=== PATIENT | female | born 1965 | race Caucasian/White ===

== ENCOUNTER → 2021-05-02 12:38 | Outpatient (CLI) | payer MEDICAID, SELFPAY ==
--- NOTE | 2021-05-02 13:18 | CT_ITS ---
STUDY: LOW DOSE CT LUNG CANCER SCREENING REASON FOR EXAM: Female, 56 years old. 43 pack-year history. Current smoker. RADIATION DOSAGE (If Supplied By Facility): CTDIvol = ( 2.01 ) mGy, DLP = ( 61.43 ) mGycm TECHNIQUE: No contrast was administered. Low dose technique was utilized (average mAS-38 and kVp 120). 1.25 mm axial source images with a slice interval of 1.25-mm were reconstructed in lung windows. 2.5 mm axial source images with a slice interval of 2.5-mm were reconstructed in lung windows. 5.0 mm axial source images with a slice interval of 5.0-mm were reconstructed in soft tissue windows. Nodule measured using lung windows on PACS and/or independent workstation with automated measurement of minimum and maximum diameter. Nodule measurement reported as average diameter rounded to the nearest whole number. Growth is defined as an increase ins size of greater than 1.5 mm. COMPARISON: None. NODULES: Total lung nodules (excluding granulomas): 0 Emphysema: No Endobronchial lesion: No Aorta: Minimal atherosclerotic changes without aneurysm. Coronary arteries: Minimal calcifications along the left coronary artery. Heart: Normal Pulmonary artery: Normal Mediastinal nodes: None Other chest and abdominal findings: CT/Low Dose CT Lung Screening IMPRESSION: Lung-RADS category 1 - Continue annual screening with LDCT in 12 months. IMPORTANT NOTES FOR USE: ACR Lung-RADS Version 1.1 Assessment Categories Release Date: 2018 Category: Coded 0-4 bases on nodule(s) with highest degree of suspicion. Negative screen is defined as categories 1 and 2; a positive screen is defined as categories 3 and 4. Category 3 and 4A nodules that are unchanged on interval CT should be coded as category 2, and individuals returned to screening in 12 months. Category 4X: Category 3 or 4 nodules with additional imaging findings that increase the suspicion of lung cancer, such as spiculation, GGN that doubles in size in 1 year, enlarged lymph notes, etc. Category Modifiers: S (significant finding unrelated to lung cancer) Electronically Signed: Jericho Byrnes DO at 16:51 EST Tel [phone], Service support ,
== END ==
PROVIDERS: PCP Student in an Organized Health Care Education/Training Program; Referring Provider Internal Medicine Pulmonary Disease; Visit Provider Internal Medicine Pulmonary Disease
DX: Z87.891 Personal history of nicotine dependence (principal); Z12.2 Encounter for screening for malignant neoplasm of respiratory organs
CPT/HCPCS: 71271

== ENCOUNTER → 2022-10-04 | Outpatient (CLI) | payer MEDICAID, SELFPAY ==
--- NOTE | 2022-10-04 12:37 | CT_ITS ---
STUDY: LOW DOSE CT LUNG CANCER SCREENING REASON FOR EXAM: Female, 57 years old. One half pack per day smoker x44 years RADIATION DOSAGE (If Supplied By Facility): CTDIvol = ( 3.02 ) mGy, DLP = ( 94.40 ) mGycm TECHNIQUE: No contrast was administered. Low dose technique was utilized (average mAS-38 and kVp 120). 1.25 mm axial source images with a slice interval of 1.25-mm were reconstructed in lung windows. 2.5 mm axial source images with a slice interval of 2.5-mm were reconstructed in lung windows. 5.0 mm axial source images with a slice interval of 5.0-mm were reconstructed in soft tissue windows. COMPARISON: 05/02/2021 Findings: Lung windows show the lungs to be normally expanded. No organized infiltrate, effusion, or suspicious noncalcified mass or nodule. Limited soft tissues show normal-appearing thyroid gland. Scattered subcentimeter in short axis dimension, physiologic axillary and mediastinal lymph nodes. There are calcified coronary vessels, no pericardial effusion. Limited cuts through the upper abdomen do not show a suspicious abnormality. Bony structures show degenerative change CT/Low Dose CT Lung Screening IMPRESSION: Lung-RADS category 1 - Continue annual screening with LDCT in 12 months. IMPORTANT NOTES FOR USE: ACR Lung-RADS Version 1.1 Assessment Categories Release Date: 2018 Category: Coded 0-4 bases on nodule(s) with highest degree of suspicion. Negative screen is defined as categories 1 and 2; a positive screen is defined as categories 3 and 4. Category 3 and 4A nodules that are unchanged on interval CT should be coded as category 2, and individuals returned to screening in 12 months. Category 4X: Category 3 or 4 nodules with additional imaging findings that increase the suspicion of lung cancer, such as spiculation, GGN that doubles in size in 1 year, enlarged lymph notes, etc. Category Modifiers: S (significant finding unrelated to lung cancer) Electronically Signed: Leonides Ring MD at 13:04 EDT ,
== END | disposition home or self-care (01) ==
LOC: CT 12:32
PROVIDERS: PCP Student in an Organized Health Care Education/Training Program; Referring Provider Internal Medicine Pulmonary Disease; Visit Provider Internal Medicine Pulmonary Disease
DX: Z87.891 Personal history of nicotine dependence (principal)
CPT/HCPCS: 71271

== ENCOUNTER 2024-09-23 09:31 | Day surgery (SDC) | payer MEDICAID, SELFPAY ==
--- NOTE | 2024-09-20 11:54 | EKG12_ITS ---
Test Reason : PRE OP Blood Pressure : */* mmHG Vent. Rate : 87 BPM Atrial Rate : 87 BPM P-R Int : 162 ms QRS Dur : 82 ms QT Int : 378 ms P-R-T Axes : 55 -11 46 degrees QTcB Int : 454 ms Normal sinus rhythm Normal ECG Confirmed by TYLER RUST, STEPHEN ([id number]), scientific publications editor HEENA LAM ([id number]) on 09/20/2024 1:26:13 PM Referred By: Guicho Leonard Confirmed By: STEPHEN SCOTT MD
[2024-09-20 12:48] LABS: Prothrombin Time (Protime)PT. 12.9 SECONDS (11.7-14.9)
[2024-09-20 12:49] LABS: Partial Thromboplast Time 29.5 Seconds (24.1-36.2)
[2024-09-20 13:11] LABS: ALB/GLOB Ratio 1.4 RATIO (0.9-2.4); AST(SGOT) 25 U/L (<=31); Alanine Aminotransfer ALT/SGPT 26 U/L (<=34); Albumin, Serum 4.1 g/dL (3.4-4.8); Alkaline Phosphatase 127 U/L (35-104); Anion Gap 12 (5-15); BUN 14 mg/dL (4-19); BUN/Creat Ratio 11.9 RATIO (10-20); Calcium,Total 8.8 mg/dL (7.6-11.0); Carbon Dioxide 24.1 mmol/L (21.0-32.0); Chloride 104 mmol/L (98-108); Creatinine, Serum 1.17 mg/dL (0.70-1.20); EST Glomerular Filtration Rate 53 (>60); Globulin 2.8 g/dL (2.2-4.2); Glucose 370 mg/dL (70-99); Potassium 4.8 mmol/L (3.3-5.1); Protein, Total 6.9 g/dL (5.9-8.4); Sodium Level 139 mmol/L (133-145)
[2024-09-21 09:16] LABS: Hematocrit 42.6 % (37-47); Hemoglobin 14.2 g/dL (12.0-15.0); Mean Corp Hgb Conc 33.3 g/dL (32-36); Mean Corpuscular Volume 95.9 fL (81-99); Mean Platelet Vol. 9.9 fl (6.2-12.0); Platelet Count 175 K/mm3 (150-450); RBC Distribution Width CV 12.6 % (11.6-14.6); RBC Distribution Width SD 44.8 fl (35.1-43.9); Red Blood Count 4.44 M/mm3 (4.2-5.4)
--- NOTE | 2024-09-21 09:34 | PAT.ANESEVAL ---
Pre-Assessment Diagnosis/Proposed Procedure Planned Operative Procedure(s): ORIF RIGHT DISTAL RADIUS FX Anesthesia History Anesthesia History - shock absorption floor layer: Anesthesia History - shock absorption floor layer Hx Hospitalization No 09/17/24 10:22 Any Problems With Anesthesia Yes: N,V 09/17/24 10:22 Cholinesterase deficiency No 09/17/24 10:22 You/Your Family Experience No 09/17/24 10:22 fever (hyperthermia) with Relationship Recent Exposure to Contagious No 05/01/16 06:49 Disease Does patient have nerve No 09/17/24 10:22 stimulator Patient instructed to have device shut off --Does patient have Pacemaker or ICD? When Was Last Pacemaker Check QUESTION #4 FULL TEXT: You/Your Family Experience fever (hyperthermia) with Anesthesia Last Oral Intake Last Oral intake: Last Oral Intake NPO since Meds taken in AM with sips of water? Meds patient instructed to take am of surgery PONV PONV - shock absorption floor layer: PONV - shock absorption floor layer Female Yes 09/17/24 10:22 HX of Motion Sickness Yes 09/17/24 10:22 HX of N/V After Surgery Yes 09/17/24 10:22 Non-Smoker No 09/17/24 10:22 Duration of Surgery greater Yes 09/17/24 10:22 than 60 minutes Number of Risk Factors 4 09/17/24 10:22 PONV Score Severe Risk 09/17/24 10:22 Height & Weight Height & Weight: Anesthesia: Height & Weight Height 5 ft 1 in 05/01/16 06:49 Respiratory Assessment Respiratory Assessment - shock absorption floor layer: Respiratory Tract Infection Hx - shock absorption floor layer Hx Respiratory Tract Infection No 09/17/24 10:22 STOP Sleep Apnea STOP Sleep Apnea - shock absorption floor layer: STOP Sleep Apnea - shock absorption floor layer Hx Hypertension Yes: CONTROLLED WITH MED 09/17/24 10:22 Hx Sleep Apnea Yes 09/17/24 10:22 CPAP Yes: NONCOMPLIANT 09/17/24 10:22 BIPAP No 09/17/24 10:22 Do you snore loudly (louder than talking or can be heard Do you often feel tired/ fatigued/ sleepy during daytime? Has anyone observed you stop breathing during sleep? STOP Results Positive 09/17/24 10:22 QUESTION #5 FULL TEXT : Do you snore loudly (louder than talking or can be heard through closed doors)? Tobacco Use History Tobacco Use History - shock absorption floor layer: Tobacco Use History - shock absorption floor layer Tobacco Use Smoking Status Current every day smoker 09/17/24 10:22 Hx Tobacco Use Yes 09/17/24 10:22 Years Smoking Packs Smoked per Day Smoking Cessation Date was within the last 15 years Hx Smoking Cessation Date Hx Smoking Cessation Counseling Hematologic Medial History Hematologic Hx - shock absorption floor layer: Hematologic Medical Hx - buffer automatic Hx of Blood Transfusion No 09/17/24 10:22 Hx of Transfusion in last 3 No 09/17/24 10:22 Months Date of Last Transfusion (if within last 3 months) Ever experience any problems No 09/17/24 10:22 with transfusion(s)? Specify any problems Hx of Preganancy in last 3 No 09/17/24 10:22 Months Nurse Filling Out Transfusion DSCHRIBER 09/17/24 10:22 & Questions: Date: 09/17/24 09/17/24 10:22 Time: 10:25 09/17/24 10:22 Patient unable to answer at this time (ie. confused, unrespo /Reproduction History /Reproductive History - shock absorption floor layer: /Reproductive Hx- shock absorption floor layer Hx Now No 09/17/24 10:22 Gestational Age (in weeks): EDC: Hx Hx Para Hx Section SAB No 09/17/24 10:22 PFS Medical History (Updated 09/17/24 @ 10:39 by Zakia Bhandari) Disability Wears glasses Post-menopausal Depression Anxiety Arthritis Cirrhosis High cholesterol Easy bruising Restless legs Back pain Migraine headache Loss of consciousness Seizures Dietary restriction Gastric reflux Smoker CPAP (continuous positive airway pressure) dependence Asthma Leg cramps Hepatitis Insulin dependent diabetes mellitus History of pain when walking Hypertension Adopted Hx of fracture of arm Home Medications ?Medication ?Instructions ?Recorded ?Last Taken ?Type gabapentin 600 mg tablet 600 tab PO TID 10/20/13 05/01/16 05:45 History 600 TAB meloxicam 15 mg tablet 15 tab PO BID 10/20/13 Unknown History insulin aspart U-100 100 unit/mL 30 unit subcut BID PRN 09/14/14 Unknown History subcutaneous solution (Novolog hyperglycemia U-100 Insulin aspart) lorazepam 0.5 mg tablet 0.5 mg PO TID PRN PRN Anxiety 09/14/14 05/01/16 05:45 History 0.5 MG cetirizine 10 mg capsule (Zyrtec) 10 mg PO DAILY 01/23/15 Unknown History tizanidine 4 mg tablet (Zanaflex) 4 mg PO QHS 01/23/15 Unknown History fluticasone propionate 50 1 spray BID 04/26/16 Unknown History mcg/actuation nasal spray,suspension meclizine 12.5 mg tablet 12.5 mg PO TID PRN PRN Nausea 04/26/16 Unknown History fluticasone 250 mcg-salmeterol 50 1 puff inhalation BID 05/01/16 05/01/16 05:45 History mcg/dose blistr powdr for 1 PUFF inhalation (Advair Diskus) amlodipine 10 mg tablet 10 mg PO QHS 09/17/24 Unknown History cyanocobalamin (vitamin B-12) 1,000 mcg sublingual DAILY 09/17/24 Unknown History 1,000 mcg sublingual tablet duloxetine 60 mg capsule,delayed 120 mg PO QHS 09/17/24 Unknown History release enalapril maleate 5 mg tablet 5 mg PO QHS 09/17/24 Unknown History fremanezumab-vfrm 225 mg/1.5 mL 225 mg subcut QMONTH 09/17/24 Unknown History subcutaneous auto-injector (Ajovy) insulin degludec 200 unit/mL (3 30 unit subcut BID 09/17/24 Unknown History mL) subcutaneous pen (Tresiba FlexTouch U-200 insulin) metformin 500 mg tablet,extended 500 mg PO TID 09/17/24 Unknown History release 24 hr montelukast 10 mg tablet 10 mg PO DAILY 09/17/24 Unknown History pantoprazole 40 mg tablet,delayed 40 mg PO QHS 09/17/24 Unknown History release promethazine-DM 6.25 mg-15 mg/5 mL 5 ml PO QHS NAUSEA 09/17/24 Unknown History oral syrup rosuvastatin 20 mg tablet 20 mg PO QHS 09/17/24 Unknown History suvorexant 10 mg tablet (Belsomra) 10 mg PO QHS 09/17/24 Unknown History tenofovir alafenamide 25 mg tablet 25 mg PO QHS 09/17/24 Unknown History (Vemlidy) ubrogepant 100 mg tablet (Ubrelvy) 100 mg PO PRN PRN MIGRAINE 09/17/24 Unknown History Allergy/AdvReac Type Severity Reaction Status Date / Time chlorhexidine (From Allergy Hives Verified 09/17/24 10:11 ChloraPrep Clear) egg Allergy Food Verified 09/17/24 10:11 Allergy hydrocodone bitartrate (From Allergy Rash Verified 09/17/24 10:11 Vicodin) isopropyl alcohol (From Allergy Hives Verified 09/17/24 10:11 ChloraPrep Clear) moxifloxacin (From Avelox) Allergy Unknown Verified 09/17/24 10:11 oxycodone HCl (From Percocet) Allergy Rash Verified 09/17/24 10:11 Tetracyclines Allergy Unknown Verified 09/17/24 10:11 Surgical History (Updated 09/17/24 @ 10:39 by Zakia Bhandari) Hx laparoscopic cholecystectomy Hx of hysterectomy Hx of repair of left rotator cuff Hx of repair of right rotator cuff Social History Smoking Status: Current every day smoker tobacco type: cigarettes Audit: Pertinent Findings Pertinent Findings EKG Perinent findings: September 20, 2024. Normal sinus rhythm. Recommendation Anesthesia Recommendation Anesthesia recommendation: OPTIMIZED for anesthesia (Recheck glucose day of surgery.)
[2024-09-23] VITALS (12 sets, daily range): BP systolic 112–153; BP diastolic 61–94; PULSE 75–88; RESP 16–18; TEMP 36.1–36.8; O2SAT 92–97; BMI 28.3
--- NOTE | 2024-09-23 09:23 | PCM.POST.ANE ---
Anesthesia: Postop Eval I Current Vital Signs Temperature: 97 F Pulse Rate: 82 Blood Pressure: 112/62 Respiratory Rate: 16 Pulse Ox: 95 Assessment Airway patent: Yes Spontaneous unlabored respirations: Yes nausea: No Vomiting: No Anesthesia Complication: No Fluid Hydration Crystalloid volume administer (ml): 1,300 Total IV fluid infused: 1,300 Progress Note Anesthesia document: Postop Eval 1 completed: Yes
[2024-09-23] MEDS: 0.9% Normal Saline (1000mL) 1,000 ML 15 ML IV (10:03)
--- NOTE | 2024-09-23 10:38 | PCM.PRE.AN2 ---
ASA Classification* ASA Classification ASA Classification: 3 Assessment & Plan Anesthesia* Anesthesia Assessment Anesthesia Assessment: Discussed sedation and/or anesthesia options, risks, benefits, and alternatives with patient/parents/legal guardian/POA. Questions invited. The patient/parents/legal guardian/POA seems to understand and agrees to proceed with anesthesia plan. Reviewed the physical assessment, medical history, allergy history and patient home medications list prior to surgery/procedure/anesthetic and documented any changes. Performed airway and anesthesia risk assessments. Anesthesia Type Anesthesia Type: General and Block History Source History Obtained from:: Patient and Chart Anesthesia Focused Assessment* Temperature: 97.6 F Pulse Rate: 88 Blood Pressure: 117/94 Respiratory Rate: 16 Pulse Ox: 92 Oxygen Delivery Method: Room Air Airway Assessment Mouth opens: >3 cm Mallampati Score: II Teeth Condition: Intact Neck Range of motion (ROM): Full ROM Focused Labs Anesthesia Preop lab: CBC WBC 7.0 K/mm3 (4.4-11.0) 09/20/24 12:06 09/20/24 RBC 4.44 M/mm3 (4.2-5.4) 09/20/24 12:06 09/20/24 Hgb 14.2 g/dL (12.0-15.0) 09/20/24 12:06 09/20/24 Hct 42.6 % (37-47) 09/20/24 12:06 09/20/24 Plt Count 175 K/mm3 (150-450) 09/20/24 12:06 09/20/24 CHEMISTRY Potassium 4.8 mmol/L (3.3-5.1) 09/20/24 12:06 09/20/24 Sodium 139 mmol/L (133-145) 09/20/24 12:06 09/20/24 Magnesium 1.9 mg/dL (1.8-2.4) 12/12/14 12:16 12/12/14 Phosphorus 3.4 mg/dL (2.5-4.9) 12/12/14 12:16 12/12/14 BUN 14 mg/dL (4-19) 09/20/24 12:06 09/20/24 Creatinine 1.17 mg/dL (0.70-1.20) 09/20/24 12:06 09/20/24 Glucose 370 mg/dL (70-99) H 09/20/24 12:06 09/20/24 POC Glucose 106 mg/dL (70-110) 05/01/16 11:21 05/01/16 COAG PT 12.9 SECONDS (11.7-14.9) 09/20/24 12:06 09/20/24 Pre-Assessment Diagnosis/Proposed Procedure Planned Operative Procedure(s): ORIF RIGHT DISTAL RADIUS FX Anesthesia History 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 When Was Last Pacemaker Check QUESTION #4 FULL TEXT: You/Your Family Experience fever (hyperthermia) with Anesthesia Last Oral Intake Last Oral intake: Last Oral Intake NPO since 06:00 09/23/24 10:04 Meds taken in AM with sips of Yes 09/23/24 10:04 water? 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 Female Yes 09/17/24 10:22 HX of Motion Sickness Yes 09/17/24 10:22 HX of N/V After Surgery Yes 09/17/24 10:22 Non-Smoker No 09/17/24 10:22 Duration of Surgery greater Yes 09/17/24 10:22 than 60 minutes Number of Risk Factors 4 09/17/24 10:22 PONV Score Severe Risk 09/17/24 10:22 Height & Weight Height & Weight: Anesthesia: Height & Weight Height 5 ft 1 in 09/23/24 10:04 Weight: 68 kg 09/23/24 10:04 Body Mass Index (BMI) 28.3 09/23/24 10:04 Respiratory Assessment Respiratory Assessment - ice skating instructor: Respiratory Tract Infection Hx - ice skating instructor Hx Respiratory Tract Infection No 09/17/24 10:22 STOP Sleep Apnea STOP Sleep Apnea - ice skating instructor: STOP Sleep Apnea - 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 Has anyone observed you stop breathing during sleep? STOP Results Positive 09/17/24 10:22 QUESTION #5 FULL TEXT : Do you snore loudly (louder than talking or can be heard through closed doors)? 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 Specify any problems Hx of Preganancy in last 3 No 09/17/24 10:22 Months Nurse Filling Out Transfusion DSCHRIBER 09/17/24 10:22 & Questions: Date: 09/17/24 09/17/24 10:22 Time: 10:09/17/24 10:22 Patient unable to answer at this time (ie. 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: /Reproductive Hx- ice skating instructor Hx Now No 09/17/24 10:22 Gestational Age (in weeks): EDC: Hx Hx Para Hx Section SAB No 09/17/24 10:22 Active Medications Active Medications: Current Medications Generic Name Dose Route Start Last Admin Trade Name Freq PRN Reason Stop Dose Admin Cefazolin Sodium 2 gm/ N/A 20 mls @ 400 mls/hr 09/23/24 13:00 IV 09/23/24 13:02 X1 ONE Sodium Chloride 1,000 mls @ 15 mls/hr 09/23/24 09:50 09/23/24 10:03 IV 15 mls/hr .Q48H [facility] Administration [facility] Medical History (Updated 09/17/24 @ 10:39 by Zakia Bhandari) Disability Wears glasses Post-menopausal Depression Anxiety Arthritis Cirrhosis High cholesterol Easy bruising Restless legs Back pain Migraine headache Loss of consciousness Seizures Dietary restriction Gastric reflux Smoker CPAP (continuous positive airway pressure) dependence Asthma Leg cramps Hepatitis Insulin dependent diabetes mellitus History of pain when walking Hypertension Adopted Hx of fracture of arm Home Medications ?Medication ?Instructions ?Recorded ?Last Taken ?Type gabapentin 600 mg tablet 600 tab PO TID 10/20/13 09/22/24 History meloxicam 15 mg tablet 15 tab PO BID 10/20/13 09/22/24 History insulin aspart U-100 100 unit/mL 30 unit subcut BID PRN 09/14/14 09/22/24 History subcutaneous solution (Novolog hyperglycemia U-100 Insulin aspart) lorazepam 0.5 mg tablet 0.5 mg PO TID PRN PRN Anxiety 09/14/14 09/23/24 History cetirizine 10 mg capsule (Zyrtec) 10 mg PO DAILY 01/23/15 09/22/24 History tizanidine 4 mg tablet (Zanaflex) 4 mg PO QHS 01/23/15 Unknown History fluticasone propionate 50 1 spray BID 04/26/16 Unknown History mcg/actuation nasal spray,suspension meclizine 12.5 mg tablet 12.5 mg PO TID PRN PRN Nausea 04/26/16 Unknown History fluticasone 250 mcg-salmeterol 50 1 puff inhalation BID 05/01/16 09/23/24 History mcg/dose blistr powdr for inhalation (Advair Diskus) amlodipine 10 mg tablet 10 mg PO QHS 09/17/24 09/22/24 History cyanocobalamin (vitamin B-12) 1,000 mcg sublingual DAILY 09/17/24 09/22/24 History 1,000 mcg sublingual tablet duloxetine 60 mg capsule,delayed 120 mg PO QHS 09/17/24 09/23/24 History release enalapril maleate 5 mg tablet 5 mg PO QHS 09/17/24 09/23/24 History fremanezumab-vfrm 225 mg/1.5 mL 225 mg subcut QMONTH 09/17/24 Unknown History subcutaneous auto-injector (Ajovy) insulin degludec 200 unit/mL (3 30 unit subcut BID 09/17/24 09/22/24 History mL) subcutaneous pen (Tresiba FlexTouch U-200 insulin) metformin 500 mg tablet,extended 500 mg PO TID 09/17/24 09/22/24 History release 24 hr montelukast 10 mg tablet 10 mg PO DAILY 09/17/24 09/22/24 History pantoprazole 40 mg tablet,delayed 40 mg PO QHS 09/17/24 09/22/24 History release promethazine-DM 6.25 mg-15 mg/5 mL 5 ml PO QHS NAUSEA 09/17/24 09/22/24 History oral syrup rosuvastatin 20 mg tablet 20 mg PO QHS 09/17/24 09/23/24 History suvorexant 10 mg tablet (Belsomra) 10 mg PO QHS 09/17/24 09/22/24 History tenofovir alafenamide 25 mg tablet 25 mg PO QHS 09/17/24 09/22/24 History (Vemlidy) ubrogepant 100 mg tablet (Ubrelvy) 100 mg PO PRN PRN MIGRAINE 09/17/24 Unknown History Allergy/AdvReac Type Severity Reaction Status Date / Time chlorhexidine (From Allergy Hives Verified 09/23/24 10:01 ChloraPrep Clear) egg Allergy Food Verified 09/23/24 10:01 Allergy hydrocodone bitartrate (From Allergy Rash Verified 09/23/24 10:01 Vicodin) isopropyl alcohol (From Allergy Hives Verified 09/23/24 10:01 ChloraPrep Clear) moxifloxacin (From Avelox) Allergy Unknown Verified 09/23/24 10:01 oxycodone HCl (From Percocet) Allergy Rash Verified 09/23/24 10:01 Tetracyclines Allergy Unknown Verified 09/23/24 10:01 Surgical History (Updated 09/17/24 @ 10:39 by Zakia Bhandari) Hx laparoscopic cholecystectomy Hx of hysterectomy Hx of repair of left rotator cuff Hx of repair of right rotator cuff Social History Smoking Status: Current every day smoker tobacco type: cigarettes Review of Systems (Anesthesia) ROS Narrative System reviewed and no additional complaints, except as documented.
[2024-09-23 11:19] LABS: Bedside Glucose 187 mg/dL (74-106)
[2024-09-23] MEDS: Cefazolin 2 GM in Syringe IV (11:20)
--- NOTE | 2024-09-23 11:45 | RAD_ITS ---
EXAM: XR Right Wrist, 2 Views CLINICAL INDICATION: RT WRIST ORIF TECHNIQUE: Frontal and lateral views of the right wrist. COMPARISON: No relevant prior studies available. FINDINGS: BONES/JOINTS: Fluoroscopic images were used intraoperatively. Total of 4 images were obtained. The fixation plate and side screws to the distal radius. Total fluoroscopy time 44.9 seconds. Total radiation dose 0.79 mGy. No acute fracture. No dislocation. SOFT TISSUES: Unremarkable. No radiopaque foreign body. RAD/Wrist 2 Views IMPRESSION: Fluoroscopic images used intraoperatively. Please refer to the operative note for further details. Reading Location: [facility]
--- NOTE | 2024-09-23 13:06 | PCM.POST.ANE ---
Anesthesia: Postop Eval I Current Vital Signs Temperature: 98 F Pulse Rate: 82 Blood Pressure: 153/77 Respiratory Rate: 16 Pulse Ox: 93 Assessment Airway patent: Yes Spontaneous unlabored respirations: Yes nausea: No Vomiting: No Anesthesia Complication: No Fluid Hydration Crystalloid volume administer (ml): 1,100 Total IV fluid infused: 1,100 Progress Note Anesthesia document: Postop Eval 1 completed: Yes
--- NOTE | 2024-09-23 13:07 | PCM.OPRPT ---
Operative Report (Standard) Operative Information Date of Procedure: 09/23/24 Pre-Operative Diagnosis: Displaced intra-articular distal radius fracture Post-Operative Diagnosis: Displaced intra-articular distal radius fracture Surgery/Procedure Performed: Open reduction internal fixation right distal radius, greater than 3 parts comb setter: Yes Outpatient Pharmacy Manager: Rocío Cerda Tasks completed by engineer second assistant: Opening & closing, Implanting device and Retracting Additional academic affairs assistant?: No Type of Anesthesia: General/Regional RN Documented Start/Stop Times: Operation Date: 09/23/24 11:10 Case Time Into Pre-Op 09/23/24 09:44 Anesthesia Start 09/23/24 11:20 Into Room 09/23/24 11:20 Procedure Start 09/23/24 11:44 Procedure End 09/23/24 12:48 Anesthesia End 09/23/24 12:57 Out of Room 09/23/24 12:57 Into Recovery 09/23/24 13:00 Procedure Start Time: 11:44 Procedure Stop Time: 12:48 Select all DRAINS/GRAFTS/IMPLANTS that apply: Implanted device Implanted device details: Arthrex narrow 3-hole volar distal radius locking plate and screws, 0.45 inch K wire x 2 Estimated Blood Loss: 25 cc Specimen collected: No Description of surgery: The patient was identified in the preoperative holding area by name, medical record number, and date of . The operative extremity was marked. All questions were answered to the patient's satisfaction. Axillary block was then administered by anesthesia staff. Patient was then brought to the operative suite and positioned supine on a standard operating table. General anesthesia was induced and endotracheal tube placed and secured. The bed was spun 90 degrees. The applied well-padded pneumatic tourniquet to the right upper arm. Right upper extremity was then prepped and draped in a normal, sterile orthopedic fashion. We performed a timeout confirming the side, site, and operation to be performed. No concerns were voiced and we elected to proceed with surgery. 2 g Ancef was administered IV prior to incision and tourniquet inflation by anesthesia staff. I then exsanguinated the right upper extremity with an Esmarch bandage. Tourniquet was inflated to 250 mmHg which remained up for approximately 45 minutes. Esmarch was removed. Standard FCR approach was utilized volarly. Full-thickness skin flaps were developed overlying the FCR tendon approximately 5 cm in length. The tendon was retracted ulnarly as its floor was opened in line with the incision. The flexor pollicis longus muscle belly was then retracted ulnarly exposing the pronator quadratus. The pronator was intact and a tenotomy was performed elevating it ulnarly. Fracture early callus was encountered and displaced fracture was obviously noted. I performed a brachioradialis tenotomy to allow for mobilization of the radial styloid fragment. I used a rongeur to debride early callus. Near-anatomic reduction was achieved with volar translation of the carpus and ulnar deviation. I held the provisional reduction with a radial styloid K wire. Orthogonal fluoroscopy confirmed acceptable reduction. Narrow 3-hole plate was selected for and provisionally placed and held in place with K wires. Appropriate placement was noted. I secured the plate to bone with a cortical screw in the shaft portion of the plate. I then filled the distal cluster with unicortical locking screws. K wires were removed. Significant comminution of the radial styloid was noted and elected placed to cross pins through the radial styloid percutaneously for temporary fixation with plans to remove those in the perioperative period. I then placed 2 additional screws in the shaft portion of the plate to complete our fixation. Orthogonal fluoroscopy demonstrated appropriate reduction, hardware positioning and sizing. Final fluoroscopic images were saved. Wound was copiously irrigated with normal saline solution. Tourniquet was deflated. Hemostasis was achieved with bipolar cautery. Dermis was reapproximated with buried 3-0 Vicryl suture and skin with running subcuticular 4-0 Monocryl and Dermabond. Bulky sterile compression dressing was applied as well as a well-padded short arm fiberglass splint. Patient was safely explained the operative suite and transferred to her gurney and subsequently to PACU in stable condition after being awakened from anesthesia. She tolerated the procedure well without apparent complication. Need for skilled academic affairs assistant: Rocío Cerda PA-C was critical to the outcome of the case. During the course of the procedure the physician academic affairs assistant played a vital role. Her intimate knowledge of my steps in the procedure aided in safe and expedient completion of the procedure. The PA played a vital role in positioning particularly in obtaining the appropriate positioning. The PA was also vital in the retraction of soft tissues during the exposure and protecting vital structures. The PA was also vital and obtaining fracture reduction and assisting with hardware placement. She also played a vital role in closure and splint application with my direct supervision. Postoperative plan: Patient will be discharged home same day today after meeting same-day surgery criteria. She will follow-up in 2 weeks for splint off x-rays and wound check. Consider removal of K wires in 2 weeks versus casting for an additional 2 weeks depending on appearance of x-rays. Patient takes normal meloxicam and gabapentin for pain. She does have end-stage hepatic disease. I will judiciously prescribe 50 mg tramadol to be taken every 12 hours as needed for pain. Ice and elevation encouraged. Keep splint clean dry and intact until follow-up. Surgical Findings: Comminuted intra-articular distal radius fracture. Complications Complications: No Admit VTE Documentation VTE Present on Admission: No VTE Mechan Device Prophylaxis: SCD's VTE Pharm Prophylaxis ordered?: No Reason prophylaxis not ordered: Medical Contraindication (End-stage hepatic disease)
--- NOTE | 2024-09-23 14:04 | POSTOPAN2_ITS ---
Anesthesia Postop Eval I Sum Postop Eval Completion status Anesthesia document: Postop Eval 1 completed: Yes Anesthesia Postop Eval I Summary Anesthesia Postop Eval I Summary: Anesthesia Postop Eval I: Assessment Summary Airway patent Yes 09/23/24 13:06 MACHINE CEMENTER [email or web address] Spontaneous unlabored Yes 09/23/24 13:06 MACHINE CEMENTER AND [email or web address] respirations Mental status nausea No 09/23/24 13:06 MACHINE CEMENTER AND [email or web address] Vomiting No 09/23/24 13:06 MACHINE CEMENTER [email or web address] Anesthesia Postop Eval I: Fluid Summary Crystalloid volume administer 1,100 09/23/24 13:06 MACHINE CEMENTER [email or web address] (ml) Colloids volume administered ( ml) Blood Product volume administered (ml) Total IV fluid infused 1,100 09/23/24 13:06 MACHINE CEMENTER [email or web address] Anesthesia Postop Eval I: Summary Notes Anesthesia Complication No 09/23/24 13:06 MACHINE CEMENTER AND [email or web address] Anesthesia Complication Comment: Post-operative progress note Anesthesia: Postop Eval II Evaluation Mental status: Awake and Calm Pain Level: 0 nausea: No Vomiting: No
--- NOTE | 2024-09-23 14:04 | PCM.POSTANE2 ---
Anesthesia Postop Eval I Sum Postop Eval Completion status Anesthesia document: Postop Eval 1 completed: Yes Anesthesia Postop Eval I Summary Anesthesia Postop Eval I Summary: Anesthesia Postop Eval I: Assessment Summary Airway patent Yes 09/23/24 13:06 [email or web address] Spontaneous unlabored Yes 09/23/24 13:06 [email or web address] respirations Mental status nausea No 09/23/24 13:06 [email or web address] Vomiting No 09/23/24 13:06 [email or web address] Anesthesia Postop Eval I: Fluid Summary Crystalloid volume administer 1,100 09/23/24 13:06 [email or web address] (ml) Colloids volume administered ( ml) Blood Product volume administered (ml) Total IV fluid infused 1,100 09/23/24 13:06 [email or web address] Anesthesia Postop Eval I: Summary Notes Anesthesia Complication No 09/23/24 13:06 [email or web address] Anesthesia Complication Comment: Post-operative progress note Anesthesia: Postop Eval II Evaluation Mental status: Awake and Calm Pain Level: 0 nausea: No Vomiting: No
== END 2024-09-23 14:29 | disposition home or self-care (01) ==
LOC: SDC 09:32 → AC 09:33
PROVIDERS: Anesthesiology; PCP Student in an Organized Health Care Education/Training Program; Referring Provider Student in an Organized Health Care Education/Training Program; Visit Provider Student in an Organized Health Care Education/Training Program
PROC: (CPT 25609; principal; 2024-09-23 10:50)
DX: S52.591D Other fractures of lower end of right radius, subsequent encounter for closed fracture with routine healing (principal); J44.9 Chronic obstructive pulmonary disease, unspecified; E11.9 Type 2 diabetes mellitus without complications; F17.210 Nicotine dependence, cigarettes, uncomplicated; Z90.710 Acquired absence of both cervix and uterus; I10 Essential (primary) hypertension; Z99.89 Dependence on other enabling machines and devices; K21.9 Gastro-esophageal reflux disease without esophagitis; G47.30 Sleep apnea, unspecified; F32.A Depression, unspecified; E66.3 Overweight; Z68.27 Body mass index [BMI] 27.0-27.9, adult; Z79.899 Other long term (current) drug therapy; Z86.19 Personal history of other infectious and parasitic diseases
CPT/HCPCS: 25609; 36415; 73100; 76000; 80053; 82962; 83036; 85027; 85610; 85730; 93005; C1713; J2405

== ENCOUNTER → 2024-10-19 | Outpatient (CLI) | payer MEDICAID, SELFPAY ==
--- NOTE | 2024-10-19 15:45 | CT_ITS ---
PROCEDURE: LOW DOSE CT LUNG SCREENING (CTLUNGSCREEN), 10/19/2024 REASON FOR EXAM: NICOTINE DEP TECHNIQUE: Low dose CT (LDCT) chest was performed without contrast. Multiplanar reformats and MIP reconstructions were generated. RADIATION DOSE SUMMARY: CTDlvol: 3.02 mGy DLP: 91.38 mGycm One or more dose reduction techniques were used (e.g., Automated exposure control, adjustment of the mA and/or kV according to patient size, use of iterative reconstruction technique). COMPARISON: 05/02/2020 10/04/2012 and prior FINDINGS: Note that evaluation of the vasculature, maxwell, and soft tissues is limited in the absence of IV contrast. Heart/pericardium:Mild/moderate but multivessel coronary atherosclerosis and/or stents. Trace aortic annular calcification.. Aorta: Mild calcific atherosclerosis. Pulmonary arteries: Unremarkable. Lymph nodes: Prominent but subcentimeter mediastinal nodes, grossly unchanged.. Lungs/pleura: 2 mm LEFT upper lobe micronodule, probably unchanged, possible mucous plugging (series 2, image 85). Accessory fissure in the RIGHT lower lobe, normal variant. Airways: Unremarkable. Chest wall: Unremarkable. Upper abdomen: Cholecystectomy.. Musculoskeletal: Demineralization. Mild spondylosis. Similar chronic T12 burst fracture.. Degenerative changes of the LEFT shoulder. CT/Low Dose CT Lung Screening IMPRESSION: 1. Lung-RADS category: 2 (benign appearance or behavior, <1% chance of malignan cy); continue annual screening with LDCT. 2. Other clinically significant or potentially significant non-lung cancer find ings: None. 3. Additional description as above. Recommendations per [employer]. Lung CT Screening Reporting and Data System (Lung-RADS) v. 2022 Reading Location: [id number]
== END | disposition home or self-care (01) ==
PROVIDERS: PCP Student in an Organized Health Care Education/Training Program; Referring Provider Internal Medicine Pulmonary Disease; Visit Provider Internal Medicine Pulmonary Disease
DX: Z87.891 Personal history of nicotine dependence (principal)
CPT/HCPCS: 71271

== ENCOUNTER 2025-02-14 11:01 | Day surgery (SDC) | payer MEDICAID, SELFPAY ==
--- NOTE | 2025-02-09 18:17 | PAT.ANE_ITS ---
Pre-Assessment Diagnosis/Proposed Procedure Planned Operative Procedure(s): ORIF DIATAL RADIUS RIGHT WITH SPANNING PLATE,REMOVAL OF HARDWARE Anesthesia History Anesthesia History - ct scan special procedures technologist: Anesthesia History - ct scan special procedures technologist Hx Hospitalization Yes 02/08/25 11:25 Any Problems With Anesthesia Yes: vomiting/NO PROBLEMS 02/08/25 11:25 WITH 09/2024 ANESTHESIA Cholinesterase deficiency No 02/08/25 11:25 You/Your Family Experience No 02/08/25 11:25 fever (hyperthermia) with Relationship Recent Exposure to Contagious No 09/23/24 10:04 Disease Does patient have nerve No 02/08/25 11:25 stimulator Patient instructed to have device shut off --Does patient have Pacemaker or ICD? When Was Last Pacemaker Check QUESTION #4 FULL TEXT: You/Your Family Experience fever (hyperthermia) with Anesthesia Last Oral Intake Last Oral intake: Last Oral Intake NPO since Meds taken in AM with sips of water? Meds patient instructed to take am of surgery PONV PONV - ct scan special procedures technologist: PONV - ct scan special procedures technologist Female Yes 02/08/25 11:25 HX of Motion Sickness Yes 02/08/25 11:25 HX of N/V After Surgery Yes 02/08/25 11:25 Non-Smoker No 02/08/25 11:25 Duration of Surgery greater Yes 02/08/25 11:25 than 60 minutes Number of Risk Factors 4 02/08/25 11:25 PONV Score Severe Risk 02/08/25 11:25 Height & Weight Height & Weight: Anesthesia: Height & Weight Height 5 ft 1 in 09/23/24 10:04 Respiratory Assessment Respiratory Assessment - ct scan special procedures technologist: Respiratory Tract Infection Hx - ct scan special procedures technologist Hx Respiratory Tract Infection No 02/08/25 11:25 STOP Sleep Apnea STOP Sleep Apnea - ct scan special procedures technologist: STOP Sleep Apnea - ct scan special procedures technologist Hx Hypertension Yes: CONTROLLED WITH MED 02/08/25 11:25 Hx Sleep Apnea Yes 02/08/25 11:25 CPAP Yes: NONCOMPLIANT 02/08/25 11:25 BIPAP No 02/08/25 11:25 Do you snore loudly (louder Yes 02/08/25 11:25 than talking or can be heard Do you often feel tired/ No 02/08/25 11:25 fatigued/ sleepy during daytime? Has anyone observed you stop No 02/08/25 11:25 breathing during sleep? STOP Results Positive 02/08/25 11:25 QUESTION #5 FULL TEXT : Do you snore loudly (louder than talking or can be heard through closed doors)? Tobacco Use History Tobacco Use History - ct scan special procedures technologist: Tobacco Use History - ct scan special procedures technologist Tobacco Use Smoking Status Current every day smoker 02/08/25 11:25 Hx Tobacco Use Yes 02/08/25 11:25 Years Smoking Packs Smoked per Day Smoking Cessation Date was within the last 15 years Hx Smoking Cessation Date Hx Smoking Cessation Counseling Hematologic Medial History Hematologic Hx - ct scan special procedures technologist: Hematologic Medical Hx - rn documentation specialist Hx of Blood Transfusion No 02/08/25 11:25 Hx of Transfusion in last 3 No 02/08/25 11:25 Months Date of Last Transfusion (if within last 3 months) Ever experience any problems No 02/08/25 11:25 with transfusion(s)? Specify any problems Hx of Preganancy in last 3 No 02/08/25 11:25 Months Nurse Filling Out Transfusion DSCHRIBER 02/08/25 11:25 & Questions: Date: 02/08/25 02/08/25 11:25 Time: 11:02/08/25 11:25 Patient unable to answer at this time (ie. confused, unrespo /Reproduction History /Reproductive History - ct scan special procedures technologist: /Reproductive Hx- ct scan special procedures technologist Hx Now Gestational Age (in weeks): EDC: Hx Hx Para Hx Section SAB No 02/08/25 11:25 PFSH Medical History (Updated 02/08/25 @ 11:32 by Zakia Bhandari) Disability Wears glasses Post-menopausal Depression Anxiety Arthritis Cirrhosis High cholesterol Easy bruising Restless legs Back pain Migraine headache Loss of consciousness Seizures Dietary restriction Gastric reflux Smoker CPAP (continuous positive airway pressure) dependence Asthma Leg cramps Hepatitis Insulin dependent diabetes mellitus History of pain when walking Hypertension Adopted Hx of fracture of arm Home Medications ?Medication ?Instructions ?Recorded ?Last Taken ?Type gabapentin 600 mg tablet 600 tab PO TID 10/20/1308/17 History meloxicam 15 mg tablet 15 tab PO BID 10/20/1309/22 History insulin aspart U-100 100 unit/mL 30 unit subcut BID VA N 09/14/14 09/22/24 Hi story subcutaneous solution (Novolog hyperglycemia U-100 Insulin aspart) lorazepam 0.5 mg tablet 0.5 mg PO TID PRN PRN Anxiet y 09/14/14 09/23/24 History tizanidine 4 mg tablet (Zanaflex) 4 mg PO QHS 01/23/15 Unknown History fluticasone propionate 50 1 spray BID 04/26/16 Unknown History mcg/actuation nasal spray,suspension meclizine 12.5 mg tablet 12.5 mg PO TID PRN PRN Nause a 04/26/16 Unknown History fluticasone 250 mcg-salmeterol 50 1 puff inhalation BI D 05/01/16 09/23/24 History mcg/dose blistr powdr for inhalation (Advair Diskus) amlodipine 10 mg tablet 10 mg PO QHS 09/17/24 History cyanocobalamin (vitamin B-12) 1,000 mcg sublingual SILVIA LY 09/17/24 09/22/24 History 1,000 mcg sublingual tablet duloxetine 60 mg capsule,delayed 120 mg PO QHS 5 09/23/24 History release enalapril maleate 5 mg tablet 5 mg PO QHS 09/17/2409/14 History fremanezumab-vfrm 225 mg/1.5 mL 225 mg subcut QMONTH 0 09/17/24 Unknown History subcutaneous auto-injector (Ajovy) insulin degludec 200 unit/mL (3 30 unit subcut BID 09/22/24 History mL) subcutaneous pen (Tresiba FlexTouch U-200 insulin) metformin 500 mg tablet,extended 500 mg PO TID 5 09/22/24 History release 24 hr montelukast 10 mg tablet 10 mg PO DAILY 09/17/24 04/08/17 History pantoprazole 40 mg tablet,delayed 40 mg PO QHS 5 09/22/24 History release promethazine-DM 6.25 mg-15 mg/5 mL 5 ml PO QHS NAUSEA 09/17/24 09/22/24 History oral syrup rosuvastatin 20 mg tablet 20 mg PO QHS 09/17/24 History suvorexant 10 mg tablet (Belsomra) 10 mg PO QHS 09/22/24 History tenofovir alafenamide 25 mg tablet 25 mg PO QHS 09/22/24 History (Vemlidy) ubrogepant 100 mg tablet (Ubrelvy) 100 mg PO PRN PRN M IGRAINE 09/17/24 Unknown History Allergy/AdvReac Type Severity Reaction Status Date / Time chlorhexidine (From Allergy Hives Verified 02/08/25 11:20 ChloraPrep Clear) egg Allergy Food Verified 02/08/25 11:20 Allergy hydrocodone bitartrate (From Allergy Rash Verified 02/08/25 11:20 Vicodin) isopropyl alcohol (From Allergy Hives Verified 02/08/25 11:20 ChloraPrep Clear) moxifloxacin (From Avelox) Allergy Unknown Verified 02/08/25 11:20 oxycodone HCl (From Percocet) Allergy Rash Verified 02/08/25 11:20 Tetracyclines Allergy Unknown Verified 02/08/25 11:20 Surgical History (Updated 02/08/25 @ 11:32 by Zakia Bhandari) History of open reduction and internal fixation (ORIF) procedure Hx laparoscopic cholecystectomy Hx of hysterectomy Hx of repair of left rotator cuff Hx of repair of right rotator cuff Social History Smoking Status: Current every day smoker tobacco type: cigarettes Audit: Pertinent Findings Pertinent Findings EKG Perinent findings: September 20, 2024. Normal sinus rhythm. Recommendation Anesthesia Recommendation Anesthesia recommendation: OPTIMIZED for anesthesia (February 08, 2025. Potassium 3.1. Recheck on day of surgery to make sure it is over 3.0.)
[2025-02-14] VITALS (10 sets, daily range): BP systolic 141–172; BP diastolic 72–81; PULSE 68–71; RESP 14–18; TEMP 36.3–36.6; O2SAT 95–99; BMI 27.5
[2025-02-14] MEDS: Lactated Ringers 1,000 ML 15 ML IV (11:36)
--- NOTE | 2025-02-14 11:46 | PCM.PRE.AN2 ---
ASA Classification* ASA Classification ASA Classification: 3 Assessment & Plan Anesthesia* Anesthesia Assessment Anesthesia Assessment: Discussed sedation and/or anesthesia options, risks, benefits, and alternatives with patient/parents/legal guardian/POA. Questions invited. The patient/parents/legal guardian/POA seems to understand and agrees to proceed with anesthesia plan. Reviewed the physical assessment, medical history, allergy history and patient home medications list prior to surgery/procedure/anesthetic and documented any changes. Performed airway and anesthesia risk assessments. Anesthesia Type Anesthesia Type: General and Block History Source History Obtained from:: Patient and Chart Anesthesia Focused Assessment* Temperature: 97.9 F Pulse Rate: 68 Blood Pressure: 141/73 Respiratory Rate: 14 Pulse Ox: 95 Oxygen Delivery Method: Room Air Airway Assessment Mouth opens: 2 cm Mallampati Score: III Teeth Condition: Intact Neck Range of motion (ROM): Full ROM Labs Anesthesia Preop lab: CBC WBC 7.0 K/mm3 (4.4-11.0) 09/20/24 12:06 09/20/24 RBC 4.44 M/mm3 (4.2-5.4) 09/20/24 12:06 09/20/24 Hgb 14.2 g/dL (12.0-15.0) 09/20/24 12:06 09/20/24 Hct 42.6 % (37-47) 09/20/24 12:06 09/20/24 Plt Count 175 K/mm3 (150-450) 09/20/24 12:06 09/20/24 CHEMISTRY Potassium 4.8 mmol/L (3.3-5.1) 09/20/24 12:06 09/20/24 Sodium 139 mmol/L (133-145) 09/20/24 12:06 09/20/24 Magnesium 1.9 mg/dL (1.8-2.4) 12/12/14 12:16 12/12/14 Phosphorus 3.4 mg/dL (2.5-4.9) 12/12/14 12:16 12/12/14 BUN 14 mg/dL (4-19) 09/20/24 12:06 09/20/24 Creatinine 1.17 mg/dL (0.70-1.20) 09/20/24 12:06 09/20/24 Glucose 370 mg/dL (70-99) H 09/20/24 12:06 09/20/24 POC Glucose 187 mg/dL (74-106) H 09/23/24 09:55 09/23/24 COAG PT 12.9 SECONDS (11.7-14.9) 09/20/24 12:06 09/20/24 Pre-Assessment Diagnosis/Proposed Procedure Planned Operative Procedure(s): ORIF DIATAL RADIUS RIGHT WITH SPANNING PLATE,REMOVAL OF HARDWARE Anesthesia History 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 When Was Last Pacemaker Check QUESTION #4 FULL TEXT: You/Your Family Experience fever (hyperthermia) with Anesthesia Last Oral Intake Last Oral intake: Last Oral Intake NPO since 22:00 02/14/25 11:31 Meds taken in AM with sips of No 02/14/25 11:31 water? Meds patient instructed to take am of surgery PONV PONV - microsystems engineer: PONV - microsystems engineer Female Yes 02/08/25 11:25 HX of Motion Sickness Yes 02/08/25 11:25 HX of N/V After Surgery Yes 02/08/25 11:25 Non-Smoker No 02/08/25 11:25 Duration of Surgery greater Yes 02/08/25 11:25 than 60 minutes Number of Risk Factors 4 02/08/25 11:25 PONV Score Severe Risk 02/08/25 11:25 Height & Weight Height & Weight: Anesthesia: Height & Weight Height 5 ft 1 in 02/14/25 11:31 Weight: 66 kg 02/14/25 11:31 Body Mass Index (BMI) 27.5 02/14/25 11:31 Respiratory Assessment Respiratory Assessment - microsystems engineer: Respiratory Tract Infection Hx - microsystems engineer Hx Respiratory Tract Infection No 02/08/25 11:25 STOP Sleep Apnea STOP Sleep Apnea - microsystems engineer: STOP Sleep Apnea - microsystems engineer Hx Hypertension Yes: CONTROLLED WITH MED 02/08/25 11:25 Hx Sleep Apnea Yes 02/08/25 11:25 CPAP Yes: NONCOMPLIANT 02/08/25 11:25 BIPAP No 02/08/25 11:25 Do you snore loudly (louder Yes 02/08/25 11:25 than talking or can be heard Do you often feel tired/ No 02/08/25 11:25 fatigued/ sleepy during daytime? Has anyone observed you stop No 02/08/25 11:25 breathing during sleep? STOP Results Positive 02/08/25 11:25 QUESTION #5 FULL TEXT : Do you snore loudly (louder than talking or can be heard through closed doors)? Tobacco Use History Tobacco Use History - microsystems engineer: Tobacco Use History - microsystems engineer Tobacco Use Smoking Status Current every day smoker 02/08/25 11:25 Hx Tobacco Use Yes 02/08/25 11:25 Years Smoking Packs Smoked per Day Smoking Cessation Date was within the last 15 years Hx Smoking Cessation Date Hx Smoking Cessation Counseling Hematologic Medial History Hematologic Hx - microsystems engineer: Hematologic Medical Hx - deckhand clam dredge Hx of Blood Transfusion No 02/08/25 11:25 Hx of Transfusion in last 3 No 02/08/25 11:25 Months Date of Last Transfusion (if within last 3 months) Ever experience any problems No 02/08/25 11:25 with transfusion(s)? Specify any problems Hx of Preganancy in last 3 No 02/08/25 11:25 Months Nurse Filling Out Transfusion DSCHRIBER 02/08/25 11:25 & Questions: Date: 02/08/25 02/08/25 11:25 Time: 11:02/08/25 11:25 Patient unable to answer at this time (ie. confused, unrespo /Reproduction History /Reproductive History - microsystems engineer: /Reproductive Hx- microsystems engineer Hx Now Gestational Age (in weeks): EDC: Hx Hx Para Hx Section SAB No 02/08/25 11:25 Active Medications Active Medications: Current Medications Generic Name Dose Route Start Last Admin Trade Name Freq PRN Reason Stop Dose Admin Cefazolin Sodium 2 gm/ Sodium 110 mls @ 200 mls/hr 02/14/25 12:30 Chloride IV 02/14/25 13:02 INTRAOP ONE Lactated Ringer's 1,000 mls @ 15 mls/hr 02/14/25 11:15 02/14/25 11:36 IV 15 mls/hr .Q48H WENDIE Administration PFSH Medical History (Updated 02/08/25 @ 11:32 by Zakia Bhandari) Disability Wears glasses Post-menopausal Depression Anxiety Arthritis Cirrhosis High cholesterol Easy bruising Restless legs Back pain Migraine headache Loss of consciousness Seizures Dietary restriction Gastric reflux Smoker CPAP (continuous positive airway pressure) dependence Asthma Leg cramps Hepatitis Insulin dependent diabetes mellitus History of pain when walking Hypertension Adopted Hx of fracture of arm Home Medications ?Medication ?Instructions ?Recorded ?Last Taken ?Type gabapentin 600 mg tablet 600 tab PO TID 10/20/13 09/22/24 History meloxicam 15 mg tablet 15 tab PO BID 10/20/13 02/10/25 History insulin aspart U-100 100 unit/mL 30 unit subcut BID PRN 09/14/14 09/22/24 History subcutaneous solution (Novolog hyperglycemia U-100 Insulin aspart) lorazepam 0.5 mg tablet 0.5 mg PO TID PRN PRN Anxiety 09/14/14 09/23/24 History tizanidine 4 mg tablet (Zanaflex) 4 mg PO QHS 01/23/15 02/10/25 History fluticasone propionate 50 1 spray BID 04/26/16 Unknown History mcg/actuation nasal spray,suspension meclizine 12.5 mg tablet 12.5 mg PO TID PRN PRN Nausea 04/26/16 Unknown History fluticasone 250 mcg-salmeterol 50 1 puff inhalation BID 05/01/16 02/14/25 09:00 History mcg/dose blistr powdr for inhalation (Advair Diskus) amlodipine 10 mg tablet 10 mg PO QHS 09/17/24 09/22/24 History cyanocobalamin (vitamin B-12) 1,000 mcg sublingual DAILY 09/17/24 02/08/25 History 1,000 mcg sublingual tablet duloxetine 60 mg capsule,delayed 120 mg PO QHS 09/17/24 09/23/24 History release enalapril maleate 5 mg tablet 5 mg PO QHS 09/17/24 09/23/24 History fremanezumab-vfrm 225 mg/1.5 mL 225 mg subcut QMONTH 09/17/24 Unknown History subcutaneous auto-injector (Ajovy) insulin degludec 200 unit/mL (3 30 unit subcut BID 09/17/24 02/14/25 10:30 History mL) subcutaneous pen (Tresiba 16 unit FlexTouch U-200 insulin) metformin 500 mg tablet,extended 500 mg PO TID 09/17/24 09/22/24 History release 24 hr montelukast 10 mg tablet 10 mg PO DAILY 09/17/24 09/22/24 History pantoprazole 40 mg tablet,delayed 40 mg PO QHS 09/17/24 09/22/24 History release promethazine-DM 6.25 mg-15 mg/5 mL 5 ml PO QHS NAUSEA 09/17/24 09/22/24 History oral syrup rosuvastatin 20 mg tablet 20 mg PO QHS 09/17/24 09/23/24 History suvorexant 10 mg tablet (Belsomra) 10 mg PO QHS 09/17/24 09/22/24 History tenofovir alafenamide 25 mg tablet 25 mg PO QHS 09/17/24 09/22/24 History (Vemlidy) ubrogepant 100 mg tablet (Ubrelvy) 100 mg PO PRN PRN MIGRAINE 09/17/24 Unknown History Allergy/AdvReac Type Severity Reaction Status Date / Time chlorhexidine (From Allergy Hives Verified 02/14/25 11:26 ChloraPrep Clear) egg Allergy Food Verified 02/14/25 11:26 Allergy hydrocodone bitartrate (From Allergy Rash Verified 02/14/25 11:26 Vicodin) isopropyl alcohol (From Allergy Hives Verified 02/14/25 11:26 ChloraPrep Clear) moxifloxacin (From Avelox) Allergy Unknown Verified 02/14/25 11:26 oxycodone HCl (From Percocet) Allergy Rash Verified 02/14/25 11:26 Tetracyclines Allergy Unknown Verified 02/14/25 11:26 tramadol AdvReac Unknown Hives Verified 02/14/25 11:26 Surgical History (Updated 02/08/25 @ 11:32 by Zakia Bhandari) History of open reduction and internal fixation (ORIF) procedure Hx laparoscopic cholecystectomy Hx of hysterectomy Hx of repair of left rotator cuff Hx of repair of right rotator cuff Social History Smoking Status: Current every day smoker tobacco type: cigarettes Review of Systems (Anesthesia) ROS Narrative System reviewed and no additional complaints, except as documented.
[2025-02-14 11:49] LABS: Partial Thromboplast Time 33.7 Seconds (24.1-36.2)
[2025-02-14] MEDS: Midazolam 2 MG/2 ML Syringe IV (13:51)
[2025-02-14] MEDS: Lactated Ringers 1,000 ML 1000 ML IV (13:56)
[2025-02-14] MEDS: Cefazolin 1 GM/5 ML Vial 2 GM IV (13:57)
--- NOTE | 2025-02-14 14:10 | RAD_ITS ---
PROCEDURE: WRIST 2 VIEWS 02/14/2025 REASON FOR EXAM: ORIF, DISTAL RADIUS WITH SPINNING PLATE, REMOVAL OF HARDWARE TECHNIQUE: 6.6 seconds, 6 images, 0.12 mGy. COMPARISON: None FINDINGS: Fluoro was provided. Hardware is noted. RAD/Wrist 2 Views IMPRESSION: Fluoro was provided. Reading Location: [facility]
[2025-02-14] MEDS: Lidocaine 1% (5 ml sdv) 5 ML Vial 8 ML IV (14:13)
--- NOTE | 2025-02-14 15:21 | PCM.POST.ANE ---
Anesthesia: Postop Eval I Current Vital Signs Temperature: 97.3 F Pulse Rate: 71 Blood Pressure: 150/81 Respiratory Rate: 18 Pulse Ox: 95 Oxygen Delivery Method: Room Air Assessment Airway patent: Yes Spontaneous unlabored respirations: Yes Mental status: Awake nausea: No Vomiting: No Anesthesia Complication: No Fluid Hydration Crystalloid volume administer (ml): 500 Total IV fluid infused: 500 Progress Note Anesthesia document: Postop Eval 1 completed: Yes
--- NOTE | 2025-02-14 16:15 | POSTOPAN2_ITS ---
Anesthesia Postop Eval I Sum Postop Eval Completion status Anesthesia document: Postop Eval 1 completed: Yes Anesthesia Postop Eval I Summary Anesthesia Postop Eval I Summary: Anesthesia Postop Eval I: Assessment Summary Airway patent Yes 02/14/25 15:22 [email or web address] Spontaneous unlabored Yes 02/14/25 15:22 [email or web address] respirations Mental status Awake 02/14/25 15:22 [email or web address] nausea No 02/14/25 15:22 GLAZE [email or web address] Vomiting No 02/14/25 15:22 [email or web address] Anesthesia Postop Eval I: Fluid Summary Crystalloid volume administer 500 02/14/25 15:22 [email or web address] (ml) Colloids volume administered ( ml) Blood Product volume administered (ml) Total IV fluid infused 500 02/14/25 15:22 [email or web address] Anesthesia Postop Eval I: Summary Notes Anesthesia Complication No 02/14/25 15:22 [email or web address] Anesthesia Complication Comment: Post-operative progress note Anesthesia: Postop Eval II Evaluation Mental status: Awake Pain Level: 0 nausea: No Vomiting: No Complications Anesthesia Complication: No
--- NOTE | 2025-02-14 16:15 | PCM.POSTANE2 ---
Anesthesia Postop Eval I Sum Postop Eval Completion status Anesthesia document: Postop Eval 1 completed: Yes Anesthesia Postop Eval I Summary Anesthesia Postop Eval I Summary: Anesthesia Postop Eval I: Assessment Summary Airway patent Yes 02/14/25 15:22 DATA CONVERSION [email or web address] Spontaneous unlabored Yes 02/14/25 15:22 DATA CONVERSION [email or web address] respirations Mental status Awake 02/14/25 15:22 DATA CONVERSION [email or web address] nausea No 02/14/25 15:22 DATA CONVERSION [email or web address] Vomiting No 02/14/25 15:22 DATA CONVERSION [email or web address] Anesthesia Postop Eval I: Fluid Summary Crystalloid volume administer 500 02/14/25 15:22 DATA CONVERSION [email or web address].ACAR (ml) Colloids volume administered ( ml) Blood Product volume administered (ml) Total IV fluid infused 500 02/14/25 15:22 DATA CONVERSION [email or web address] Anesthesia Postop Eval I: Summary Notes Anesthesia Complication No 02/14/25 15:22 DATA CONVERSION [email or web address] Anesthesia Complication Comment: Post-operative progress note Anesthesia: Postop Eval II Evaluation Mental status: Awake Pain Level: 0 nausea: No Vomiting: No Complications Anesthesia Complication: No
--- NOTE | 2025-02-14 19:48 | PCM.OPRPT ---
Operative Report (Standard) Operative Information Date of Procedure: 02/14/25 Pre-Operative Diagnosis: Right distal radius fracture with failed fixation Post-Operative Diagnosis: Right distal radius fracture with failed fixation Surgery/Procedure Performed: Right distal radius removal of hardware with revision open reduction internal fixation conversion to a dorsal spanning plate hyperbaric technologist: Yes Client Support Consultant: Rocío Cerda Tasks completed by first helper: Opening & closing, Implanting device and Hemostasis: Electrocautery Additional assistant manager airside operations?: No Type of Anesthesia: General/Regional RN Documented Start/Stop Times: Operation Date: 02/14/25 12:45 Case Time Into Pre-Op 02/14/25 11:08 Anesthesia Start 02/14/25 13:51 Into Room 02/14/25 13:51 Procedure Start 02/14/25 14:15 Procedure End 02/14/25 15:10 Anesthesia End 02/14/25 15:16 Out of Room 02/14/25 15:16 Into Recovery 02/14/25 15:18 Out of Recovery 02/14/25 15:43 Into Phase II Recovery 02/14/25 15:44 Out of Phase II 02/14/25 16:17 Procedure Start Time: 14:15 Procedure Stop Time: 15:10 Select all DRAINS/GRAFTS/IMPLANTS that apply: Implanted device Implanted device details: Arthrex titanium dorsal spanning plate Estimated Blood Loss: 25 cc Specimen collected: No Description of surgery: Patient was identified in the preoperative holding area by name, medical record number, and date of . The operative extremity was marked. All questions answered to patient satisfaction. Regional nerve block was administered by anesthesia staff. At time of her procedure, patient was brought the operative suite positioned supine a sterile operating table. General anesthesia was induced and LMA placed. Well-padded pneumatic tourniquet was applied of the right upper arm. We spun the bed 90 degrees. All bony prominences were well-padded. Hand table was attached to the right side of the operating table. We prepped and draped the right upper extremity in a normal, sterile orthopedic fashion with Betadine. Timeout was called confirming side, site, and operation to be performed. No concerns voiced elected to proceed with surgery. 2 g Ancef was administered IV prior to incision by anesthesia staff. I then examined the right hand with Esmarch bandage. Tourniquet inflated to 250 mmHg for approximately 30 minutes. Esmarch was removed. Prior FCR incision was opened. Full-thickness skin flaps were developed down to the FCR tendon. Adhesions were freed and the tendon was mobilized ulnarly. The floor of the tendon sheath was opened in line with the incision. Blunt dissection was carried down the level of the plate which was easily identified. Adhesions were freed to identify the screws. Screws were then removed without difficulty. Plate was then levered from the bone with a [place] elevator and retrieved. Orthogonal fluoroscopy confirmed complete removal of hardware. There was still some persistent instability at the radial styloid. Significant malalignment was noted and the patient was considerably ulnar positive. There is at this time I proceeded with dorsal spanning plate fixation. Plate was laid over the dorsal third metacarpal and distal forearm and skin incisions were marked. Distally, longitudinal incision over the third metacarpal shaft was made in standard fashion. Flaps were developed tunnel over the extensor tendons. The extensor tendon was mobilized ulnarly. I then turned my attention proximally. The bare spot in the radius was identified and longitudinal incision was made approximately 3 cm in length. Fascia was opened and tendons were retracted ulnarly. I then passed a [place] elevator deep to the tendons and subsequently our dorsal spanning plate. This was retrieved distally out of the third metacarpal incision. Plate was compressed to bone with a cortical screw in the third metacarpal shaft as well as 2 additional locking screws. Proximally, 4 screws were placed 2 cortical and 2 locking screws for additional fixation. Wrist was stable after final fixation. Wounds were irrigated with normal saline solution. Tourniquet deflated and hemostasis achieved with bipolar cautery. Dermis was reapproximated buried 3-0 Vicryl suture and skin reapproximated with interrupted horizontal mattress 4-0 nylon suture. Bulky sterile compression dressing is applied. Patient was placed in a volar fiberglass splint, short arm. She was awakened from anesthesia. She was safely explained the operative suite. She was transferred to her gurney and subsequently PACU in stable condition. She tolerated the procedure well without apparent complication. Need for skilled assistant manager airside operations: Rocío Creda PA-C was critical to the outcome of the case. During the course of the procedure the physician assistant manager airside operations played a vital role. Her intimate knowledge of my steps in the procedure aided in safe and expedient completion of the procedure. The PA played a vital role in positioning particularly in obtaining the appropriate positioning. The PA was also vital in the retraction of soft tissues during the exposure and protecting vital structures. The PA was also vital and obtaining fracture reduction and assisting with hardware placement. She also played a vital role in closure and splint application with my direct supervision. Surgical Findings: Loss of fixation right distal radius. Stable right wrist following final fixation. Complications Complications: No Admit VTE Documentation VTE Present on Admission: No VTE Mechan Device Prophylaxis: SCD's VTE Pharm Prophylaxis ordered?: No Reason prophylaxis not ordered: Treatment Not Indicated
== END 2025-02-14 16:18 | disposition home or self-care (01) ==
LOC: SDC 11:02 → AC 11:04
PROVIDERS: Anesthesiology; PCP Student in an Organized Health Care Education/Training Program; Referring Provider Student in an Organized Health Care Education/Training Program; Visit Provider Student in an Organized Health Care Education/Training Program
PROC: (CPT 20680; principal; 2025-02-14 12:25)
DX: T84.84XA Pain due to internal orthopedic prosthetic devices, implants and grafts, initial encounter (principal); J44.9 Chronic obstructive pulmonary disease, unspecified; G40.909 Epilepsy, unspecified, not intractable, without status epilepticus; E11.9 Type 2 diabetes mellitus without complications; S52.501A Unspecified fracture of the lower end of right radius, initial encounter for closed fracture; R29.6 Repeated falls; Z90.710 Acquired absence of both cervix and uterus; F17.210 Nicotine dependence, cigarettes, uncomplicated; K21.9 Gastro-esophageal reflux disease without esophagitis; F32.A Depression, unspecified; E78.00 Pure hypercholesterolemia, unspecified; F41.9 Anxiety disorder, unspecified; B19.10 Unspecified viral hepatitis B without hepatic coma; G47.30 Sleep apnea, unspecified; Y82.9 Unspecified medical devices associated with adverse incidents
CPT/HCPCS: 20680; 25609; 73100; 76000; 82962; 85730; C1713; J2405